=== PATIENT | female | born 1945 | race Two or more races ===

== ENCOUNTER 2016-10-31 09:41 | Emergency (ER) | payer OTHER ==
[2016-10-31 09:58] VITALS: BMI 30.3
--- NOTE | 2016-10-31 10:30 | PDOC ---
History of Present Illness - General History Source: Patient Exam Limitations: No Limitations - History of Present Illness Initial Comments: 10/31/16 11:00 The patient is a 71 year old female with significant past medical history of hypercholesterolemia who presents to the emergency department with abdominal pain for the last few days. The patient states that her symptoms started about a week ago however a few days ago the pain started to get worse. She states that the pain is constant but fluctuates in severity. The pain is worse after eating. She denies any alleviating factors. She denies any associated nausea, vomiting, or diarrhea. She denies any abdominal surgeries. She reports hematuria but she denies any dysuria or frequency. The patient denies sick contacts, recent travel, or recent antibiotic use. The patient denies recent illness, fevers, or chills. <Aria Ramos - Last Filed: 10/31/16 13:57> <Chevy Simeon - Last Filed: 10/31/16 14:10> - General Chief Complaint: Pain Stated Complaint: RT SIDE ABD PAIN Time Seen by Provider: 10/31/16 10:30 Past History <Aria Ramos - Last Filed: 10/31/16 13:57> - Past Medical History Cardiac Disorders: Yes Hypercholesterolemia: Yes - Surgical History Cardiac Surgery: Yes - Psycho/Social/Smoking Cessation Hx Anxiety: No Suicidal Ideation: No Smoking History: Never smoked Hx Alcohol Use: No Drug/Substance Use Hx: No Substance Use Type: None <Chevy Simeon - Last Filed: 10/31/16 14:10> - Past Medical History Allergies/Adverse Reactions: Allergies Allergy/AdvReac Type Severity Reaction Status Date / Time No Known Allergies Allergy Verified 10/31/16 09:58 Home Medications: Ambulatory Orders Levofloxacin [Levaquin] 750 mg PO DAILY #10 tablet 10/31/16 Ondansetron [Zofran *Odt*] 8 mg SL TID #30 od.tablet 10/31/16 Oxycodone HCl/Acetaminophen [Percocet 5-325 mg Tablet] 1 - 2 tab PO Q4H #20 tablet MDD 6 10/31/16 Review of Systems - Review of Systems Able to Perform ROS?: Yes Comments:: 10/31/16 11:01 GENERAL/CONSTITUTIONAL: No fever or chills. No weakness. HEAD, EYES, EARS, NOSE AND THROAT: No change in vision. No ear pain or discharge. No sore throat. CARDIOVASCULAR: No chest pain or shortness of breath. RESPIRATORY: No cough, wheezing, or hemoptysis. GASTROINTESTINAL: +Abdominal pain. No nausea, vomiting, diarrhea or constipation. GENITOURINARY: +Hematuria. No dysuria, no frequency. MUSCULOSKELETAL: No joint or muscle swelling or pain. No neck or back pain. SKIN: No rash NEUROLOGIC: No headache, vertigo, loss of consciousness, or change in strength/ sensation. ENDOCRINE: No increased thirst. No abnormal weight change. HEMATOLOGIC/LYMPHATIC: No anemia, easy bleeding, or history of blood clots. ALLERGIC/IMMUNOLOGIC: No hives or skin allergy. <Aria Ramos - Last Filed: 10/31/16 13:57> *Physical Exam - Vital Signs Last Vital Signs Temp Pulse Resp BP Pulse Ox 97.4 F L 78 20 140/77 98 10/31/16 09:55 10/31/16 09:55 10/31/16 09:55 10/31/16 09:55 10/31/16 09:55 - Physical Exam Comments: 10/31/16 11:01 GENERAL: Awake, alert, and fully oriented, in no acute distress HEAD: No signs of trauma EYES: PERRLA, EOMI, sclera anicteric, conjunctiva clear ENT: Auricles normal inspection, hearing grossly normal, nares patent, oropharynx clear without exudates. Moist mucosa NECK: Normal ROM, supple, no lymphadenopathy, JVD, or masses LUNGS: Breath sounds equal, clear to auscultation bilaterally. No wheezes, and no crackles HEART: Regular rate and rhythm, normal S1 and S2, no murmurs, rubs or gallops ABDOMEN: +RUQ tenderness to palpation, no guarding no rebound. Soft, normoactive bowel sounds. No masses EXTREMITIES: Normal range of motion, no edema. No clubbing or cyanosis. No cords, erythema, or tenderness NEUROLOGICAL: Cranial nerves II through XII grossly intact. Normal speech, normal gait SKIN: Warm, Dry, normal turgor, no rashes or lesions noted. <Aria Ramos - Last Filed: 10/31/16 13:57> - Vital Signs Last Vital Signs Temp Pulse Resp BP Pulse Ox 97.4 F L 78 20 140/77 98 10/31/16 09:55 02/01/17 09:55 10/31/16 09:55 10/31/16 09:55 10/31/16 09:55 <Chevy Simeon - Last Filed: 10/31/16 14:10> ED Treatment Course - LABORATORY CBC & Chemistry Diagram: 10/31/16 11:17 10/31/16 11:17 - RADIOLOGY Radiograph Interpretation: 10/31/16 13:57 ABDOMINAL US: Reviewed and interpreted by radiologist Greg Sandoval MD. IMPRESSION: Cholelithiasis and diffuse fatty infiltration of the liver. <Aria Ramos - Last Filed: 10/31/16 13:57> - LABORATORY CBC & Chemistry Diagram: 10/31/16 11:17 10/31/16 11:17 <Chevy Simeon - Last Filed: 10/31/16 14:10> *DC/Admit/Observation/Transfer - Attestations Scribe Attestion: 10/31/16 10:53 Documentation prepared by Aria Ramos, acting as medical secretary for Chevy Simeon DO. <Aria Ramos - Last Filed: 10/31/16 13:57> <Chevy Simeon - Last Filed: 10/31/16 14:10> Diagnosis at time of Disposition: Biliary colic, Multiple gallstones Urinary tract infection Qualifiers: Urinary tract infection type: site unspecified Hematuria presence: without hematuria Qualified Code(s): N39.0 - Urinary tract infection, site not specified - Prescriptions Prescriptions: Levofloxacin [Levaquin] 750 mg PO DAILY #10 tablet Oxycodone HCl/Acetaminophen [Percocet 5-325 mg Tablet] 1 - 2 tab PO Q4H #20 tablet MDD 6 Ondansetron [Zofran *Odt*] 8 mg SL TID #30 od.tablet - Referrals Referrals: Raf Waldron MD [Primary Care Provider] - Gamaliel Szymanski MD [Staff Physician] - - Patient Instructions Printed Discharge Instructions: DI for Gallstones, DI for Biliary Colic, DI for Urinary Tract Infection (UTI), Fat-Restricted Diet Additional Instructions: Tere- Sorry this hurts so badly. You have gallstones, so that means that until you call Dr Szymanski, and make arrangements to get your GB removed, you can not eat any fat. You also have a urinary tract infection, so you need to drink more water. Antibiotic is Levaquin and it is once a day every day for ten days. Percocet is for really bad pain, and if you need to take it, use the zofran odt on your tongue first. Lie down and have someone come and watch over you. Hopefully you will feel better soon- Best- Dr. Chevy Simeon
[2016-10-31] MEDS ORDERED: morphine CARPU-JECT 4 MG/1 ML DISP.SYRIN IVPUSH ONE (10:39)
[2016-10-31] MEDS ORDERED: ONDANSETRON 4 MG/2 ML VIAL IVPB ONE (10:39)
[2016-10-31] MEDS ORDERED: SODIUM CHLORIDE 1,000 ML IV SCH (10:45)
[2016-10-31] MEDS ORDERED: morphine CARPU-JECT 4 MG/1 ML DISP.SYRIN ONE (10:56)
[2016-10-31] MEDS ORDERED: ONDANSETRON 4 MG/2 ML VIAL ONE ×2 (10:57→13:04)
[2016-10-31 11:30] LABS: BASOPHIL 0.7 % (0-2.0); EOSINOPHIL 0.5 % (0-4.5); MCH 30.5 pg (25.7-33.7); MCHC 33.4 g/dl (32.0-36.0); MEAN CELL VOLUME 91.3 fl (80-96); MEAN PLT VOLUME 8.5 fl (7.5-11.1); NEUTROPHILS 53.2 % (42.8-82.8); PLATELET COUNT 221 K/MM3 (134-434); RDW 14.4 % (11.6-15.6); WHITE BLOOD COUNT 6.2 K/mm3 (4.0-10.0)
[2016-10-31 11:32] LABS: URINE APPEARANCE SLCLOUDY; URINE BLOOD NEGATIVE (NEGATIVE); URINE COLOR AMBER; URINE GLUCOSE (UA) NEGATIVE (NEGATIVE); URINE KETONE NEGATIVE (NEGATIVE); URINE NITRITE NEGATIVE (NEGATIVE); URINE UROBILINOGEN 4.0 E.U/dl E.U./dl (0.2-1.0)
[2016-10-31 11:43] LABS: URINE LEUK ESTERASE 2+ (NEGATIVE); URINE PROTEIN 1+ (NEGATIVE)
[2016-10-31 11:45] LABS: URINE HYALINE CAST 2 /lpf; URINE MUCUS MANY; URINE RBC 51 /hpf (0-3); URINE WBC 222 /hpf (3-5)
[2016-10-31 11:57] LABS: INR 1.03 (0.82-1.09); PROTHROMBIN TIME (PATIENT) 11.3 SEC (9.98-11.88)
[2016-10-31 12:12] LABS: ANION GAP 11 (8-16); CALCIUM 9.3 mg/dL (8.5-10.1); CO2 27 mmol/L (21-32); CREATININE 0.9 mg/dL (0.55-1.02); GLUCOSE,RANDOM 105 mg/dL (74-106); SGOT/AST 205 U/L (15-37); SGPT/ALT 298 U/L (12-78); TOT PROT 7.6 g/dl (6.4-8.2)
[2016-10-31 12:14] LABS: ALK PHOS 293 U/L (45-117); BILIRUBIN,TOTAL 4.3 mg/dL (0.2-1.0)
[2016-10-31] MEDS ORDERED: CEFTRIAXONE 1 GM in DEXTROSE 5%-WATER - 50 ML IVPB ONE (12:43)
[2016-10-31] MEDS ORDERED: CEFTRIAXONE 50 ML ONE (13:05)
[2016-10-31 14:46] VITALS: BP 124/73; PULSE 98; TEMP 98.4
== END 2016-10-31 14:49 | disposition home or self-care (01) ==
LOC: JER 09:41
PROC: 3E033NZ Introduction of Analgesics, Hypnotics, Sedatives into Peripheral Vein, Percutaneous Approach (ICD-10-PCS; principal; 2016-10-31)
PROC: 3E033GC Introduction of Other Therapeutic Substance into Peripheral Vein, Percutaneous Approach (ICD-10-PCS; 2016-10-31)
DX: K80.50 Calculus of bile duct without cholangitis or cholecystitis without obstruction (principal); K80.80 Other cholelithiasis without obstruction; N39.0 Urinary tract infection, site not specified; E78.00 Pure hypercholesterolemia, unspecified; I51.9 Heart disease, unspecified
CPT/HCPCS: 36415; 76705-TC; 80053; 81003; 81015; 83690; 85025; 85610; 87086; 96365; 96375; 99282-25